=== PATIENT | female | born 1990 | race Caucasian/White ===

== ENCOUNTER 2018-04-23 06:09 | Inpatient (IN) ==
[2018-04-23] MEDS ORDERED: D5LR 1L W PITOCIN 10 UNITS/L 10 UNITS/1,000 ML BAG IV ONE (06:32)
[2018-04-23] MEDS ORDERED: LR 1000 ML IV 1,000 ML IV ONE (06:32)
[2018-04-23] MEDS ORDERED: PITOCIN ONE (06:33)
[2018-04-23] MEDS ORDERED: D5 1/2 NS 1L W PITOCIN 20 UNITS/L 20 UNITS/1,000 ML BAG IV ONE (06:33)
[2018-04-23] MEDS ORDERED: D5 1/2 NS 1000 ML 1,000 ML IV ONE (06:33)
[2018-04-23] MEDS ORDERED: MORPHINE SULFATE INJ 2 MG INJ IVP PRN (06:48)
[2018-04-23] MEDS ORDERED: PHENERGAN INJ 25 MG IV PRN ×2 (06:48→13:43)
[2018-04-23] MEDS ORDERED: D5LR 1L W PITOCIN 10 UNITS/L 10 UNITS/1,000 ML BAG IV PRN (06:48)
[2018-04-23] MEDS ORDERED: NUBAIN INJ 200 MG VIAL MULTIDOSE IVP PRN (06:48)
[2018-04-23] MEDS ORDERED: PITOCIN IVP ONE (06:48)
[2018-04-23] MEDS ORDERED: REGLAN INJ 10 MG VIAL IVP PRN (06:48)
[2018-04-23] MEDS ORDERED: D5 1/2 NS 1000 ML 1,000 ML IV SCH (06:48)
--- NOTE | 2018-04-23 06:55 | DR.OB ---
OB Quick Note - Assessment/Plan Assessment/Plan: L&D 04/23/18 at 6:50am S-No complaint. O-Afebrile,VSS [id number]=[id number] with good LTV, +accel, no decel. CTX=occasional,mild CVX=3cm/50%/-1/VTX AROM with clear fluid. IUPC and FSE placed. A-IUP at 39 4/7 weeks for induction Rh- CF carrier Abn. quad screen P-Begin pitocin induction Anticipate
[2018-04-23] MEDS ORDERED: ADRENALINE CHL INJ ONE (09:42)
[2018-04-23] MEDS ORDERED: NAROPIN EPIDURAL 0.2% + FENTANYL 90MCG 60 ML EPI ONE (09:42)
[2018-04-23] MEDS ORDERED: XYLOCAINE 1 % (PLAIN) ONE (09:42)
[2018-04-23] MEDS ORDERED: XYLOCAINE-MPF 1% ONE (09:44)
[2018-04-23] MEDS ORDERED: FENTANYL INJ 100 mcg ONE (09:57)
--- NOTE | 2018-04-23 12:14 | DR.OB ---
OB Quick Note - Assessment/Plan Assessment/Plan: L&D 04/23/18 at 12:05pm Pitocin=20mu/min. S-No complaint. s/p epidural. O-Afebrile,VSS XIO=[id number] with good LTV, +accel, no decel. CTX=q 1 1/2 to 2 min., about 55-65mmHg CVX=7-8cm/100%/0 A-IUP at 39 4/7 weeks for induction Rh- CF carrier Abn. quad screen P-Cont. pitocin induction Anticipate
[2018-04-23] MEDS ORDERED: MILK OF MAGNESIA PO PRN (14:26)
[2018-04-23] MEDS ORDERED: HYPERRHO S/D (or RHOGAM) IM PRN (14:26)
[2018-04-23] MEDS ORDERED: DERMOPLAST SPRAY TOP PRN (14:26)
[2018-04-23] MEDS ORDERED: AMBIEN PO PRN (14:26)
[2018-04-23] MEDS ORDERED: ADACEL or BOOSTRIX TDaP VACCINE IM ONE (14:26)
[2018-04-23] MEDS: D5 1/2 NS 1000 ML 1,000 ML with PITOCIN 20 UNITS IV SCH ×2 (16:08)
--- NOTE | 2018-04-23 16:24 | DR.OB ---
OB Quick Note - Assessment/Plan Assessment/Plan: Delivery Note DATA ENTRY 04/23/18 at 1:20pm Patient complete and pushing. Head delivered over intact perineum. Compound presentation with left hand at face. Nose and mouth bulb suctioned. No nuchal cord. Body delivered over intact perineum. Cord clamped x 2 and cut. handed to attendant. Cord sent for gases. Placenta delivered spontaneously / intact / 3 vessel cord. No CVX tears. A second degree midline tear noted and repaired in usual fashion with 0-vicryl. A right sidewall laceration noted and required a figure-of-8 stitch of 0-vicryl for hemostasis. Viable female , VTX/OA, wt=7'10" and 9/9, stable to NBN. Mother stable to RR. QJW=[id number].
[2018-04-23] MEDS: MOTRIN TAB 800 MG PO PRN (20:11)
[2018-04-23] MEDS: ZANTAC PO SCH (22:24)
[2018-04-24] MEDS ORDERED: ADACEL or BOOSTRIX TDaP VACCINE IM ONE (01:36)
[2018-04-24] MEDS: D5 1/2 NS 1000 ML 1,000 ML with PITOCIN 20 UNITS IV SCH ×4 (03:52→07:56)
[2018-04-24 05:02] LABS: HEMATOCRIT 29.1 % (36.0-47.0); HEMOGLOBIN 10.2 g/dL (12.0-16.0)
[2018-04-24] MEDS: ZANTAC PO SCH (08:28)
[2018-04-24] MEDS ORDERED: PRENATAL PLUS PO SCH (09:00)
[2018-04-24] MEDS: MOTRIN TAB 800 MG PO PRN (09:50)
[2018-04-24 11:48] VITALS: BP 124/61
== END 2018-04-24 16:05 | disposition home or self-care (01) | DRG 775 ==
LOC: LD 06:09 → MED/SURG 14:27
PROVIDERS: ADMIT Specialist; ATTEND Specialist
DX: Z23 Encounter for immunization; Z14.1 Cystic fibrosis carrier; Z37.0 Single live birth; O36.0930 Maternal care for other rhesus isoimmunization, third trimester, not applicable or unspecified; Z3A.39 39 weeks gestation of pregnancy; O99.824 Streptococcus B carrier state complicating childbirth
CPT/HCPCS: 36415; 59409; 80048; 80307; 81001; 85014; 85018; 85025; 85461; 86592; 86850; 86900; 86901; 90715; A4216; A4222; S0197; G0434; J0171; J2550; J2590; J3010; J7120; S5010